=== PATIENT | male | born 1990 | race Caucasian/White ===

== ENCOUNTER 2016-04-29 16:27 | Emergency (ER) | payer SELFPAY ==
[~2016-04-29] VITALS: Ht 175.3 cm; Wt 63.6 kg
[2016-04-29 16:37] VITALS: BP 128/76; PULSE 74; RESP 18; TEMP 98.4; O2SAT 98
--- NOTE | 2016-04-29 16:42 | PD ---
HPI Chief Complaint: alcohol intoxication Time Seen by Provider: 16:36 Travel History International Travel<30 days: No Contact w/Intl Traveler<30days: No Traveled to known affect area: No History of Present Illness HPI 25-year-old male from [place], here for spring break, brought in by ambulance for alcohol intoxication. The patient admits to drinking beer and liquor throughout the day today. He was with his friends on the beach when he fell into the sand and they could not get him up. He denies illicit drug use. He denies head neck or back pain. No pain in any joint or extremity. [facility] Social History Tobacco Use: No Allergies-Medications (Allergen,Severity, Reaction): Coded Allergies: No Known Allergies (Unverified , 04/29/16) Reported Meds & Prescriptions Reported Meds & Active Scripts Active No Active Prescriptions or Reported Medications Review of Systems Except as stated in HPI: all other systems reviewed are Neg Physical Exam Narrative GENERAL: Well-developed, well-nourished, awake, appears intoxicated, no acute distress. SKIN: Warm and dry. No lacerations, abrasions, or ecchymosis. HEAD: Atraumatic. Normocephalic. Beach sand throughout hair and face. EYES: Pupils equal, round, 3 mm, reactive to light. No scleral icterus. No injection or drainage. ENT: No nasal bleeding or discharge. Mucous membranes pink and moist. NECK: Trachea midline. No JVD. No midline cervical spine step-off or tenderness. CARDIOVASCULAR: Regular rate and rhythm. RESPIRATORY: No accessory muscle use. Clear to auscultation. Breath sounds equal bilaterally. GASTROINTESTINAL: Abdomen soft, non-tender, nondistended. Hepatic and splenic margins not palpable. MUSCULOSKELETAL: No obvious deformities. No clubbing. No cyanosis. No edema. NEUROLOGICAL: Awake and alert. No obvious cranial nerve deficits. Motor grossly within normal limits. Normal speech. PSYCHIATRIC: Appears intoxicated. Answers questions appropriately. Data Data Last Documented VS Vital Signs Date Time Temp Pulse Resp B/P Pulse Ox O2 Delivery O2 Flow Rate FiO2 04/29/16 16:37 98.4 74 18 128/76 98 Orders Sodium Chlor 0.9% 1000 Ml Inj (Ns 1000 M (04/29/16 16:45) Ondansetron Inj (Zofran Inj) (04/29/16 16:45) Alcohol (Ethanol) (04/29/16 16:55) Labs Laboratory Tests Test 04/29/16 17:01 Ethyl Alcohol Level 236 MG/DL MDM Medical Decision Making Medical Screen Exam Complete: Yes Emergency Medical Condition: Yes Differential Diagnosis Alcohol intoxication, intracranial abnormality unlikely Narrative Course Vital signs show heart rate 74, blood pressure 128/76, pulse ox 98% on room air , oral temp of 98.4F. This is a 25-year-old male who was brought in by ambulance after his friends called 911 because he was intoxicated on the beach, was lying in the sand, and they could not get him up. Here in the emergency department the patient admits to drinking beer and liquor throughout the day today. Denies illicit drug use. There are no signs of trauma on exam. He will be given IV fluids and antiemetics and will be allowed to sleep off his intoxication in the emergency department. 5:00 PM: The patient's friends who are with him all day are here in the emergency department. They assure me that the patient did not sustain any significant trauma and has been drinking alcohol throughout the day today. Diagnosis Primary Impression: Alcohol intoxication Qualified Code: F10.120 - Alcohol intoxication, uncomplicated Referrals: Primary Care Physician 3 days Scripts No Active Prescriptions or Reported Meds Disposition: DISCHARGE HOME Condition: Stable Raudel Ovalles MD Apr 29, 2016 16:42
[2016-04-29] MEDS ORDERED: ONDANSETRON HCL 4 MG/2 ML VIAL IV PUSH ONE (16:45)
[2016-04-29] MEDS ORDERED: SODIUM CHLOR 0.9% 1000 ML INJ 1,000 ML IV ONE (16:45)
--- NOTE | 2016-04-29 17:48 | PD ---
Physical Exam Date Seen by Provider: Apr 29, 2016 Time Seen by Provider: 17:46 Narrative The patient is a 25-year-old male was initially evaluated by Dr. Ovalles. Please refer to the initial history, physical, diagnostic evaluation, treatment modality plan. The patient was signed out of 5 PM with laboratory evaluation for alcohol pending. The patient was found intoxicated, his friends were unable to lift him or get him to stand and ambulate. The patient does admit to drinking alcohol, states he is from [place], [place]. He denies any illicit drug use. He denies any physical complaints. Data Data Last Documented VS Vital Signs Date Time Temp Pulse Resp B/P Pulse Ox O2 Delivery O2 Flow Rate FiO2 04/29/16 16:37 98.4 74 18 128/76 98 Orders Sodium Chlor 0.9% 1000 Ml Inj (Ns 1000 M (04/29/16 16:45) Ondansetron Inj (Zofran Inj) (04/29/16 16:45) Alcohol (Ethanol) (04/29/16 16:55) Labs Laboratory Tests Test 04/29/16 17:01 Ethyl Alcohol Level 236 MG/DL [facility] Medical Record Reviewed: Yes Supervised Visit with [facility]: No Interpretation(s) Laboratory Tests Test 04/29/16 17:01 Ethyl Alcohol Level 236 MG/DL Differential Diagnosis Differential diagnosis includes alcohol intoxication, drug ingestion, encephalopathy, dehydration. Narrative Course The patient was initially evaluated by the previous physician, Dr. Ovalles. Please refer to the initial history, physical, diagnostic evaluation, and treatment modality plan. Patient was signed out of 5 PM with laboratory evaluation pending. Alcohol is elevated at 236. The patient will be allowed to sleep it off, monitored, once he is able to ambulate and has a safe disposition home, patient will be discharged. Diagnosis Primary Impression: Alcohol intoxication Qualified Code: F10.120 - Alcohol intoxication, uncomplicated Referrals: Primary Care Physician 3 days Patient Instructions: General Instructions Additional Instruction: Decrease alcohol intake. Follow-up with her primary physician. Return if symptoms worsen or progress. Med/Other Pt SpecificInfo: No Change to Meds Scripts No Active Prescriptions or Reported Meds Disposition: DISCHARGE HOME Condition: Stable Jean Marie Trinidad MD Apr 29, 2016 17:48
== END 2016-04-29 18:30 | disposition home or self-care (01) ==
LOC: NEPA 16:27
DX: F10.120 Alcohol abuse with intoxication, uncomplicated (principal); Y90.7 Blood alcohol level of 200-239 mg/100 ml
CPT/HCPCS: 80307; 96374; 99284; J2405; J7030